=== PATIENT | male | born 1980 | race Caucasian/White ===

== ENCOUNTER 2016-08-11 11:10 | Inpatient (IN) | payer BC ==
[~2016-08-11] VITALS: Ht 185.4 cm; Wt 134.2 kg
[2016-08-11] VITALS (270 sets, daily range): BP systolic 105–117; BP diastolic 70–81; PULSE 98–100; TEMP 97.7–100.7; O2SAT 86–100
[~2016-08-11 11:10] MED LIST: AMOXICILLIN 8751 TAB PO; CLEOCIN HCL300 MG PO; KLONOPIN 1MG1 MG PO; LORTAB 5/500 501 TAB PO; NO HOME MEDICATIONS; NORCO 325 MG-51 TAB PO; XANAX 1MG1 MG PO
[2016-08-11 12:20] LABS: HEMATOCRIT 49.1 % (42.0-52.0); HEMOGLOBIN 15.8 g/dl (13.5-18.0); MEAN CELL VOLUME 98 fl (80.0-100.0); MEAN CORPUSCULAR HEMOGLOBIN 32 pg (27.0-31.0); MEAN CORPUSCULAR HGB CONC 32 g/dl (33.0-37.0); MEAN PLATELET VOLUME 10.6 fl (7.4-10.4); PLATELET COUNT 268 K/mm3 (130-400); RED BLOOD COUNT 5.01 M/mm3 (4.20-5.60); REDCELL DISTRIBUTION WIDTH-CV 13.3 % (11.5-14.5)
[2016-08-11 12:22] LABS: ADD PATHOLOGY DIFF REVIEW NO; WHITE BLOOD COUNT 20.3 K/mm3 (4.8-10.8)
[2016-08-11 12:32] LABS: ACETAMINOPHEN < 10 ug/mL (10-30); ADJUSTED CALCIUM 8.3 mg/dL (8.4-10.2); ALANINE AMINOTRANSFERASE 50 U/L (21-72); ALBUMIN 4.6 gm/dL (3.5-5.0); ALKALINE PHOSPHATASE 56 U/L (50-136); ANION GAP 18 mmol/L (7-16); BILIRUBIN,TOTAL 0.9 mg/dL (0.0-1.0); BLOOD UREA NITROGEN 20 mg/dL (9-20); CALCIUM 8.8 mg/dL (8.4-10.2); CARBON DIOXIDE 23 mmol/L (22-30); CHLORIDE 101 mmol/L (98-107); CREATININE, serum 1.51 mg/dL (0.66-1.25); GLUCOSE 121 mg/dL (74-106); POTASSIUM 4.9 mmol/L (3.4-5.0); SALICYLATE < 1.0 mg/dL; SODIUM 142 mmol/L (137-145); TOTAL PROTEIN 8.2 gm/dL (6.4-8.2)
[2016-08-11 12:45] LABS: ARTERIAL BLD GAS O2 SATURATION 94.4 % (92-100); ARTERIAL BLD GAS TCO2 CT 22.3; ARTERIAL BLOOD GAS BASE EXCESS -6.3 (-2-2); ARTERIAL BLOOD GAS HCO3 20.8 meq/L (22-26); ARTERIAL BLOOD GAS PHT 7.27 C (7.35-7.45); ARTERIAL BLOOD GAS PO2 68.1 mmHg (80-100); ARTERIAL BLOOD GAS PO2T 68.1 (80-100); ARTERIAL BLOOD GAS pH 7.27 (7.35-7.45); OXYHEMOGLOBIN 92.5 %
[2016-08-11 12:46] LABS: ATS? YES
[2016-08-11] MEDS ORDERED: BLOOD PRESSURE MED (12:57)
[2016-08-11] MEDS ORDERED: PRILOTC (12:57)
[2016-08-11 12:59] LABS: AMPHETAMINE URINE NEGATIVE; BARBITURATES URINE NEGATIVE; BENZODIAZEPINES URINE POSITIVE; BUPRENORPHINE URINE NEGATIVE; METHADONE URINE NEGATIVE; OPIATES URINE POSITIVE; OXYCODONE URINE NEGATIVE; PHENCYCLIDINE URINE NEGATIVE; PROPOXYPHENE URINE NEGATIVE; THC CANNABINOIDS URINE NEGATIVE
[2016-08-11 13:07] LABS: BAND 6 % (0-10); BASOPHIL 1 % (0-2); METAMYELOCYTE 4 % (0-0); NEUTROPHILS 78 % (42.0-75.2); TOTAL CELLS COUNTED 102
[2016-08-11 13:57] LABS: ARTERIAL BLD GAS O2 SATURATION 96.9 % (92-100); ARTERIAL BLD GAS TCO2 CT 21.1; ARTERIAL BLOOD GAS BASE EXCESS -6.7 (-2-2); ARTERIAL BLOOD GAS HCO3 19.8 meq/L (22-26); ARTERIAL BLOOD GAS PHT 7.28 C (7.35-7.45); ARTERIAL BLOOD GAS pH 7.28 (7.35-7.45); OXYHEMOGLOBIN 95.3 %
[2016-08-11 13:58] LABS: ATS? YES
[2016-08-11] MEDS ORDERED: ROBAXIN 50500 MG/TAB PO (16:12)
[2016-08-11 23:54] LABS: PH 5 (5-8); SQUAMOUS EPITHELIAL None Seen /hpf; URINE APPEARANCE Clear; URINE BACTERIA None Seen /hpf; URINE BILIRUBIN Negative (NEGATIVE); URINE BLOOD Negative (NEGATIVE); URINE COLOR Yellow; URINE GLUCOSE 3+ (NEGATIVE); URINE KETONE Negative (NEGATIVE); URINE RBC 0-2 /hpf; URINE UROBILINOGEN Negative (NEGATIVE); URINE WBC 0-2 /hpf
[2016-08-12] VITALS (338 sets, daily range): BP systolic 98–139; BP diastolic 59–86; PULSE 74–116; TEMP 97.1–99.3; O2SAT 88–100
[2016-08-12 06:10] LABS: BASO % 0.3 % (0.0-2.0); EOS # 0.1 (0.0-0.7); EOS % 0.4 % (0-4.0); GRAN # 9.6 (1.4-6.5); GRAN % 74.4 % (42.2-75.2); HEMATOCRIT 39.5 % (42.0-52.0); LYMPH # 2.2 (1.2-3.4); LYMPH % 16.6 % (20.0-51.0); MEAN CELL VOLUME 96 fl (80.0-100.0); MEAN CORPUSCULAR HEMOGLOBIN 32 pg (27.0-31.0); MEAN CORPUSCULAR HGB CONC 33 g/dl (33.0-37.0); MEAN PLATELET VOLUME 10.9 fl (7.4-10.4); MONO % 7.8 % (1.7-9.3); PLATELET COUNT 178 K/mm3 (130-400); RED BLOOD COUNT 4.12 M/mm3 (4.20-5.60); REDCELL DISTRIBUTION WIDTH-CV 13.3 % (11.5-14.5); WHITE BLOOD COUNT 12.9 K/mm3 (4.8-10.8)
[2016-08-12 06:22] LABS: ADJUSTED CALCIUM 9.1 mg/dL (8.4-10.2); ALBUMIN 3.2 gm/dL (3.5-5.0); BILIRUBIN,TOTAL 0.7 mg/dL (0.0-1.0); CALCIUM 8.5 mg/dL (8.4-10.2); CREATININE, serum 1.24 mg/dL (0.66-1.25); POTASSIUM 3.6 mmol/L (3.4-5.0); TOTAL PROTEIN 5.9 gm/dL (6.4-8.2)
[2016-08-13 04:34] VITALS: BP 144/84; PULSE 91; TEMP 98.4
[2016-08-13 07:04] LABS: BASO % 0.3 % (0.0-2.0); EOS # 0.1 (0.0-0.7); GRAN # 6.6 (1.4-6.5); GRAN % 71.4 % (42.2-75.2); HEMATOCRIT 37.4 % (42.0-52.0); HEMOGLOBIN 12.3 g/dl (13.5-18.0); LYMPH # 1.6 (1.2-3.4); LYMPH % 16.9 % (20.0-51.0); MEAN CELL VOLUME 94 fl (80.0-100.0); MEAN CORPUSCULAR HEMOGLOBIN 31 pg (27.0-31.0); MEAN CORPUSCULAR HGB CONC 33 g/dl (33.0-37.0); MEAN PLATELET VOLUME 11.6 fl (7.4-10.4); MONO # 0.9 (0.1-0.6); PLATELET COUNT 162 K/mm3 (130-400); RED BLOOD COUNT 3.98 M/mm3 (4.20-5.60); WHITE BLOOD COUNT 9.3 K/mm3 (4.8-10.8)
[2016-08-13 07:09] LABS: ADJUSTED CALCIUM 9.1 mg/dL (8.4-10.2); ALBUMIN 3.2 gm/dL (3.5-5.0); BILIRUBIN,TOTAL 0.8 mg/dL (0.0-1.0); CALCIUM 8.5 mg/dL (8.4-10.2); CREATININE, serum 0.93 mg/dL (0.66-1.25); POTASSIUM 3.4 mmol/L (3.4-5.0); TOTAL PROTEIN 6.2 gm/dL (6.4-8.2)
[2016-08-13] MEDS ORDERED: ASPIRIN 81M81 MG/TA2 PO (08:07)
[2016-08-13 08:40] VITALS: BP 144/81; PULSE 88; TEMP 98.3
[2016-08-13] MEDS ORDERED: AMOXICILLIN 8751 TAB PO (09:26)
[2016-08-13 11:33] VITALS: BP 146/84; PULSE 86; TEMP 98.1
[2016-10-18] MEDS ORDERED: COZAAR 50MG50 MG/TAB PO (09:41)
== END 2016-08-13 12:15 | disposition home or self-care (01) | DRG 177 ==
LOC: COL.ER 11:10 → ICU 15:53 → COL.ER 15:53 → MEDICAL 15:53 → ICU 08-12 12:45 → MEDICAL 08-12 12:45
PROVIDERS: Emergency Medicine; Internal Medicine; Physician Assistant
DX: J69.0 Pneumonitis due to inhalation of food and vomit (principal); J96.02 Acute respiratory failure with hypercapnia; J96.01 Acute respiratory failure with hypoxia; A41.9 Sepsis, unspecified organism; I21.4 Non-ST elevation (NSTEMI) myocardial infarction; N17.9 Acute kidney failure, unspecified; T40.1X1A Poisoning by heroin, accidental (unintentional), initial encounter; E86.0 Dehydration; I10 Essential (primary) hypertension; E78.5 Hyperlipidemia, unspecified; F17.210 Nicotine dependence, cigarettes, uncomplicated
CPT/HCPCS: 99223-AI; 99233-AI; 99239; A9284; C9113; J1650; J2310; J2405; J2543; J2550; J7030; J7050

== ENCOUNTER 2016-08-23 11:57 | Emergency (ER) | payer BC ==
[~2016-08-23] VITALS: Ht 182.9 cm; Wt 136.4 kg
[~2016-08-23 11:57] MED LIST changes: +ASPIRIN 81M81 MG/TA2 PO; +BLOOD PRESSURE MED; +PRILOTC; +ROBAXIN 50500 MG/TAB PO
[2016-08-23] MEDS ORDERED: COZAAR 25MG25 MG/TAB PO (12:06)
[2016-08-23] MEDS ORDERED: MSIR30 MG PO (12:07)
[2016-08-23 13:12] LABS: BASO # 0.1 (0.0-0.2); BASO % 0.5 % (0.0-2.0); EOS # 0.2 (0.0-0.7); EOS % 1.2 % (0-4.0); GRAN # 10.2 (1.4-6.5); GRAN % 71.2 % (42.2-75.2); HEMATOCRIT 47.5 % (42.0-52.0); LYMPH # 2.6 (1.2-3.4); LYMPH % 18.4 % (20.0-51.0); MEAN CELL VOLUME 92 fl (80.0-100.0); MEAN CORPUSCULAR HEMOGLOBIN 31 pg (27.0-31.0); MEAN CORPUSCULAR HGB CONC 34 g/dl (33.0-37.0); MEAN PLATELET VOLUME 10.5 fl (7.4-10.4); MONO # 1.2 (0.1-0.6); MONO % 8.2 % (1.7-9.3); PLATELET COUNT 324 K/mm3 (130-400); RED BLOOD COUNT 5.15 M/mm3 (4.20-5.60); REDCELL DISTRIBUTION WIDTH-CV 12.9 % (11.5-14.5); WHITE BLOOD COUNT 14.3 K/mm3 (4.8-10.8)
[2016-08-23 13:16] LABS: INR 1.1 (0.8-3.0); PROTHROMBIN TIME 12.1 SECONDS (9.7-12.8)
[2016-08-23 13:19] LABS: PARTIAL THROMBOPLASTIN TIME 37.1 SECONDS (26.0-37.0)
[2016-08-23 13:26] LABS: ADJUSTED CALCIUM 9.6 mg/dL (8.4-10.2); ALANINE AMINOTRANSFERASE 60 U/L (21-72); ALBUMIN 4.5 gm/dL (3.5-5.0); ALKALINE PHOSPHATASE 59 U/L (50-136); ANION GAP 15 mmol/L (7-16); BILIRUBIN,TOTAL 1.1 mg/dL (0.0-1.0); BLOOD UREA NITROGEN 20 mg/dL (9-20); CARBON DIOXIDE 24 mmol/L (22-30); CHLORIDE 99 mmol/L (98-107); CREATININE, serum 1.27 mg/dL (0.66-1.25); GLUCOSE 93 mg/dL (74-106); POTASSIUM 3.9 mmol/L (3.4-5.0); SODIUM 139 mmol/L (137-145); TOTAL PROTEIN 8.3 gm/dL (6.4-8.2)
[2016-08-23 13:38] LABS: TROPONIN-I < 0.012 ng/mL (0.000-0.034)
[2016-08-23 14:28] VITALS: BP 145/81; PULSE 86; TEMP 97.8
[2016-10-18] MEDS ORDERED: COZAAR 50MG50 MG/TAB PO (09:41)
== END 2016-08-23 14:29 | disposition home or self-care (01) ==
LOC: COL.ER 11:57
PROVIDERS: Family Medicine
DX: R00.2 Palpitations (principal); F17.210 Nicotine dependence, cigarettes, uncomplicated

== ENCOUNTER → 2016-09-17 | Outpatient (CLI) | payer BC ==
[~2016-09-17] VITALS: Ht 182.9 cm; Wt 124.0 kg
[~2016-09-17] MED LIST changes: +COZAAR 25MG25 MG/TAB PO; +COZAAR 50MG50 MG/TAB PO; +MSIR30 MG PO
[2016-09-17 10:52] VITALS: BP 135/84
== END ==
LOC: COL.CARD 10:30
DX: Z53.9 Procedure and treatment not carried out, unspecified reason (principal)

== ENCOUNTER → 2016-10-18 | Outpatient (CLI) | payer BC ==
[~2016-10-18] VITALS: Ht 182.9 cm; Wt 131.3 kg
[2016-10-18 09:38] VITALS: BP 121/81; PULSE 93
[2016-10-18 10:45] VITALS: BP 127/75; PULSE 89
[2016-10-18 10:46] VITALS: BP 137/81; PULSE 105
[2016-10-18 10:47] VITALS: BP 137/79; PULSE 102
[2016-10-18 10:48] VITALS: BP 134/80; PULSE 101
== END ==
LOC: COL.CARD 09:05
DX: R79.89 Other specified abnormal findings of blood chemistry (principal)
CPT/HCPCS: A9502; J2785